=== PATIENT | male | born 2000 | race Caucasian/White ===

== ENCOUNTER 2020-11-15 12:57 | Emergency (ER) | payer OTHER ==
[~2020-11-15] VITALS: Ht 180.3 cm; Wt 70.4 kg
--- NOTE | 2020-11-15 13:52 | PHYS DOC ---
Past History Past Medical History: Asthma Past Surgical History: No Surgical History Smoking: Non-smoker Alcohol Use: Occasionally Drug Use: None General Adult EDM: Chief Complaint: FATIGUE HPI: HPI: Patient is a 20 year old male who presents with fatigue and weakness that began last night. States he was outside yesterday afternoon for a barbecue and he had to move inside after he began feeling weak. He does not feel like he remained a dequately hydrated yesterday. Also reports feeling near-syncopal earlier today as he was climbing up the stairs. Reports some mild shortness of breath and palpitations as well but denies any cough, congestion, or fevers. He has a history of asthma but has not felt like he needed to use his rescue inhaler. Denies any known exposure to COVID-19. Patient has not been vaccinated for CO VID. Review of Systems: Review of Systems: Constitutional: Denies fever or chills; reports fatigue Eyes: Denies redness or eye pain HENT: Denies nasal congestion or sore throat Respiratory: Reports shortness of breath. Denies cough. Cardiovascular: Reports palpitations. Denies chest pain. GI: Reports nausea. Denies abdominal pain or vomiting : Denies dysuria or hematuria Musculoskeletal: Denies back pain or joint pain Integument: Denies rash or skin lesions Neurologic: Reports generalized weakness and near syncope. Denies headache or sensory changes Complete systems were reviewed and found to be within normal limits, except as documented in this note. Physical Exam: PE: Constitutional: Well developed, well nourished, no acute distress, non-toxic appearance HENT: Normocephalic, atraumatic Eyes: EOMI, PERRL, conjunctiva normal, no discharge Neck: Normal range of motion, no tenderness, supple Lungs & Thorax: No respiratory distress, equal chest rise and fall. Clear to auscultation bilaterally. Abdomen: Soft, no tenderness Skin: Warm, dry, no erythema, no rash Back: No tenderness, no CVA tenderness Extremities: No tenderness, ROM intact, no edema Neurologic: Alert and oriented X 3, normal motor function, normal sensory function, no focal deficits noted Psychologic: Affect normal, judgment normal Current Patient Data: Vital Signs: Vital Signs Date Time Temp Pulse Resp B/P (MAP) Pulse Ox O2 Delivery O2 Flow Rate FiO2 11/15/20 13:00 99 18 104/49 (67) 100 Room Air EKG: EK BPM, Sinus tachycardia, QRS 102ms, QTc 455 Radiology/Procedures: Radiology/Procedures: XR CHEST 1V 11/15/2020 1:50 PM INDICATION: Shortness of air or syncope COMPARISON: None available TECHNIQUE: Portable frontal view of the chest is provided. FINDINGS: The cardiomediastinal silhouette is within normal limits. Lungs are clear. There are no significant pleural effusions. There is no pulmonary vascular congestion. No pneumothorax. No suspicious osseous abnormality. IMPRESSION: There is no acute cardiopulmonary process. Electronically signed by: Amber Fierro MD (11/15/2020 2:01 PM) [id number] Heart Score: C/O Chest Pain: N/A Course & Med Decision Making: Course & Med Decision Making Pertinent Labs and Imaging studies reviewed. (See chart for details) 20 year old male presents with 2 day history of fatigue. Pateint neurologically intact. Labs obtained and posted to chart. BP on arrival was 104/49 and patient was given 1L of normal saline and Zofran with improvement of symptoms. Patient stable for discharge with outpatient follow-up with PCP. Discussed findings and plan with patient, who acknowledges understanding and agreement. Dragon Disclaimer: Dragon Disclaimer: This electronic medical record was generated, in whole or in part, using a voice recognition dictation system. Departure Departure: Impression: Primary Impression: Near syncope Additional Impression: Dehydration Disposition: HOME / SELF CARE / HOMELESS Condition: STABLE Referrals: JUAN MURGUIA MD (PCP) Patient Instructions: Dehydration, Adult, [id number], Near-Syncope, [id number] Additional Instructions: Increase fluid hydration. NIHSS - ED NIH Stroke Scale: NIH Stroke Scale Response (Comments) Value Level of Consciousness: 0 Alert/Responsive 0 LOC Questions: 0 Answers both correctly 0 LOC Commands: 0 Performs both tasks 0 Best Gaze: 0 Normal 0 Visual: 0 No visual loss 0 Facial Palsy: 0 Normal, symmetrical 0 Motor - Left Arm 0 No drift 0 Motor - Right Arm 0 No drift 0 Motor - Left Leg 0 No drift 0 Motor: Right Leg 0 No drift 0 Limb Ataxia: 0 Absent 0 Sensory: 0 No loss 0 Best Language: 0 Normal 0 Dysathria: 0 Normal 0 Extinction and Inattention: 0 Normal 0 Total 0 GOMEZJOEY DO Nov 15, 2020 13:52
[2020-11-15] MEDS: IV NORMAL SALINE 1,000ML 1,000 ML IV ONE (14:02)
--- NOTE | 2020-11-15 14:03 | RAD ---
XR CHEST 1V 11/15/2020 1:50 PM INDICATION: Shortness of air or syncope COMPARISON: None available TECHNIQUE: Portable frontal view of the chest is provided. FINDINGS: The cardiomediastinal silhouette is within normal limits. Lungs are clear. There are no significant pleural effusions. There is no pulmonary vascular congestion. No pneumothora x. No suspicious osseous abnormality. IMPRESSION: There is no acute cardiopulmonary process. Electronically signed by: Amber Fierro MD (11/15/2020 2:01 PM) [id number]
[2020-11-15] MEDS: ONDANSETRON PF 4 MG/2 ML VIAL. IVP ONE (14:04)
[2020-11-15 14:36] LABS: BASO % 0 % (0-3); EOS % 0 % (0-3); HEMOGLOBIN 15.1 g/dL (13.0-17.5); LYMPH # 1.3 x10^3/uL (1.0-4.8); LYMPH % 8 % (24-48); MEAN CORPUSCULAR HEMOGLOBIN 32 pg (25-35); MEAN CORPUSCULAR HGB CONC 34 g/dL (31-37); MEAN CORPUSCULAR VOLUME 95 fL (79-100); MONO # 0.3 x10^3/uL (0.0-1.1); MONO % 2 % (0-9); NEUT # 14.3 x10^3uL (1.8-7.7); NEUT % 90 % (31-73); PLATELET COUNT 313 x10^3/uL (140-400); RED BLOOD COUNT 4.72 x10^6/uL (4.30-5.70); RED CELL DISTRIBUTION WIDTH 13.3 % (11.5-14.5); WHITE BLOOD COUNT 15.9 x10^3/uL (4.0-11.0)
[2020-11-15 14:45] LABS: CALCIUM 8.9 mg/dL (8.5-10.1); CREATININE 0.9 mg/dL (0.7-1.3); GFR 105.5; POTASSIUM 3.9 mmol/L (3.5-5.1)
[2020-11-15 14:53] LABS: ALBUMIN 4.5 g/dL (3.4-5.0); ALBUMIN/GLOBULIN RATIO 1.6 (1.0-1.7); MAGNESIUM 2.2 mg/dL (1.8-2.4); TOTAL BILIRUBIN 0.7 mg/dL (0.2-1.0); TOTAL PROTEIN 7.3 g/dL (6.4-8.2)
--- NOTE | 2020-11-15 15:35 | EKG ---
[address] [address] Test Date: 2020-11-15 Test Time: 13:46:05 Pat Name: ROXANA FERNANDES Department: Room: Gender: M [employer] Technician: CHRISTIAN : 2000 Requested By: JOEY GOMEZ Order Number: [id number] Reading MD: Measurements Intervals [place] Rate: 102 P: 90 MD: 124 QRS: 87 QRSD: 102 T: 42 QT: 346 QTc: 455 Interpretive Statements SINUS TACHYCARDIA OTHERWISE NORMAL ECG RI6.02 No previous ECG available for comparison
[2020-11-15 15:54] LABS: BACTERIA,URINE 0 /HPF (0-FEW); BILIRUBIN,URINE NEG (NEG); CLARITY,URINE CLEAR; COLOR,URINE YELLOW; GLUCOSE,URINE NEG (NEG); NITRITE,URINE NEG (NEG); RBC,URINE RARE /HPF (0-2); UROBILINOGEN,URINE 0.2 mg/dL (0.2 mg/dL); WBC,URINE RARE /HPF (0-4)
[2020-11-15 16:15] LABS: % LYMPHS 4 % (24-48); % MONOS 2 % (0-10); % SEGS 94 % (35-66); PLT ESTIMATE ADEQUATE (ADEQUATE)
[2020-11-15 16:30] VITALS: BP 128/53
== END 2020-11-15 16:34 | disposition home or self-care (01) ==
LOC: ER 12:57
DX: R55 Syncope and collapse (principal); E86.0 Dehydration; J45.909 Unspecified asthma, uncomplicated
CPT/HCPCS: 36415; 71045; 80053; 81001; 82553; 83690; 83735; 84484; 85007; 85025; 93005; 96361; 96374; 99285; J2405; J7030